=== PATIENT | female | born 1990 | race Caucasian/White ===

== ENCOUNTER 2016-07-27 00:18 | Inpatient (IN) ==
--- NOTE | 2016-07-27 00:26 | Emergency Department Note ---
Disposition Clinical Impression: Methamphetamine use, Cocaine use, Altered mental status, Marijuana use, UTI ( urinary tract infection) Disposition: Still a Patient Condition: Fair Referrals: NO,PCP [Non-Partnered Physician] - Forms: ED Satisfaction Letter General Adult HPI - General Chief complaint: ED General Medical Time Seen by Provider: 07/27/16 00:25 - Related Data Home Medications Medication Instructions Recorded Confirmed ALPRAZolam [Xanax 0.5 MG Tablet] 0.5 mg PO QID 03/08/16 03/08/16 Lurasidone HCl [Latuda] 60 mg PO DAILY 03/08/16 03/08/16 Trazodone HCl 100 mg PO HS 03/08/16 03/08/16 Allergies Allergy/AdvReac Type Severity Reaction Status Date / Time Amoxicillin Allergy Hives Verified 02/12/15 15:58 Past Medical History - Past Medical History Medical history: Reports: migraine Surgical history: Reports: non-contributory, other Psychiatric history: Reports: anxiety, bipolar, depression, panic disorder, schizophrenia CANNONEER history: Reports: no CANNONEER history - Social History Smoking Status: Current every day smoker Smokeless Tobacco Status: No Alcohol use: Reports: occasionally Drug use: Reports: marijuana Course Vital Signs Temperature 97.4 F L 07/27/16 00:24 Pulse Rate 86 07/27/16 00:24 Respiratory Rate 20 07/27/16 00:24 Blood Pressure 118/64 07/27/16 00:24 O2 Sat by Pulse Oximetry 97 07/27/16 00:24 Temperature 97.4 F L 07/27/16 00:24 Pulse Rate 84 07/27/16 03:51 Respiratory Rate 18 07/27/16 03:51 Blood Pressure 114/60 07/27/16 03:51 O2 Sat by Pulse Oximetry 98 07/27/16 03:51 Oxygen Delivery Oxygen Delivery Room Air Medical Decision Making - Lab Data Result diagrams: 07/27/16 01:03 07/27/16 01:03 Lab Results 07/27/16 07/27/16 07/27/16 Range/Units 01:03 01:03 01:15 WBC 10.1 (4.3-11.1) K/mcL RBC 4.75 (3.82-4.97) M/mcL Hgb 14.9 (11.5-15.4) g/dL Hct 43.9 (35.3-44.9) % MCV 92.4 (83.0-100.0) fL MCH 31.4 (28.0-33.3) pg MCHC 33.9 (31.6-35.5) g/dL RDW 13.2 (11.5-14.5) % Plt Count 344 (140-400) K/mcL MPV 9.6 (9.4-12.4) fL Immature Gran % 0.4 (0-4) % Seg Neutrophils % 63.6 % Lymphocytes % 23.0 % Monocytes % 9.4 % Eosinophils % 3.0 % Basophils % 0.6 % Neutrophils # 6.4 (1.6-8.9) K/mcL Lymphocytes # 2.3 (0.6-4.6) K/mcL Monocytes # 1.0 (0.0-1.3) K/mcL Eosinophils # 0.3 (0.0-0.6) K/mcL Basophils # 0.1 (0.0-0.2) K/mcL Immature Plt Fraction 3.6 (1.1-6.1) % Sodium 137 (136-145) mEq/L Potassium 3.5 (3.5-4.5) mEq/L Chloride 104 (98-109) mEq/L Carbon Dioxide 22 (19-29) mEq/L BUN 9 (7-20) mg/dL Creatinine 0.80 (0.57-1.11) mg/dL Est GFR ( Amer) > 60 (> 60) Est GFR (Non-Af Amer) > 60 (> 60) BUN/Creatinine Ratio 11 (6-26) Glucose 90 (70-99) mg/dL Calculated Osmolality 282 (280-300) Calcium 9.6 (8.6-10.8) mg/dL Urine Color Dark Yellow (Yellow) Urine Clarity Turbid A (Clear) Urine pH 6.5 (5.0-8.0) pH Units Ur Specific [place] 1.026 H (1.010-1.025) Urine Protein Trace (Neg-Trace) mg/dL Urine Glucose (UA) Normal (Normal) mg/dL Urine Ketones Trace H (Negative) mg/dL Urine Blood Small H (Negative) Urine Nitrite Positive A (Negative) Urine Bilirubin Negative (Negative) Urine Urobilinogen Normal (Normal) mg/dL Ur Leukocyte Esterase Moderate H (Negative) Urine Microscopic RBC 3-5 H (0-3) per hpf Urine Microscopic WBC 30-50 H (0-3) per hpf Ur Squamous Epith Cells Many H (None-Few) per lpf Urine Bacteria Many H (None-Few) per hpf Hyaline Casts Few (None-Few) per lpf Urine Test (Negative) Salicylates < 5.0 L (15-30) mg/dL Urine Opiates Screen (Cyjyzm=931) ng/mL Acetaminophen < 1.0 L (10-30) mcg/mL Ur Barbiturates Screen (Jirrmm=353) ng/mL Ur Phencyclidine Scrn (Cutoff=25) ng/mL Ur Amphetamines Screen (Nlgppt=0488) ng/mL U Benzodiazepines Scrn (Mtssbn=780) ng/mL Urine Cocaine Screen (Cutoff= 300) ng/mL U Marijuana (THC) Screen (Cutoff = 50) ng/mL Ethyl Alcohol < 10 (0-10) mg/dL 07/27/16 07/27/16 Range/Units 01:18 01:18 WBC (4.3-11.1) K/mcL RBC (3.82-4.97) M/mcL Hgb (11.5-15.4) g/dL Hct (35.3-44.9) % MCV (83.0-100.0) fL MCH (28.0-33.3) pg MCHC (31.6-35.5) g/dL RDW (11.5-14.5) % Plt Count (140-400) K/mcL MPV (9.4-12.4) fL Immature Gran % (0-4) % Seg Neutrophils % % Lymphocytes % % Monocytes % % Eosinophils % % Basophils % % Neutrophils # (1.6-8.9) K/mcL Lymphocytes # (0.6-4.6) K/mcL Monocytes # (0.0-1.3) K/mcL Eosinophils # (0.0-0.6) K/mcL Basophils # (0.0-0.2) K/mcL Immature Plt Fraction (1.1-6.1) % Sodium (136-145) mEq/L Potassium (3.5-4.5) mEq/L Chloride (98-109) mEq/L Carbon Dioxide (19-29) mEq/L BUN (7-20) mg/dL Creatinine (0.57-1.11) mg/dL Est GFR ( Amer) (> 60) Est GFR (Non-Af Amer) (> 60) BUN/Creatinine Ratio (6-26) Glucose (70-99) mg/dL Calculated Osmolality (280-300) Calcium (8.6-10.8) mg/dL Urine Color (Yellow) Urine Clarity (Clear) Urine pH (5.0-8.0) pH Units Ur Specific [place] (1.010-1.025) Urine Protein (Neg-Trace) mg/dL Urine Glucose (UA) (Normal) mg/dL Urine Ketones (Negative) mg/dL Urine Blood (Negative) Urine Nitrite (Negative) Urine Bilirubin (Negative) Urine Urobilinogen (Normal) mg/dL Ur Leukocyte Esterase (Negative) Urine Microscopic RBC (0-3) per hpf Urine Microscopic WBC (0-3) per hpf Ur Squamous Epith Cells (None-Few) per lpf Urine Bacteria (None-Few) per hpf Hyaline Casts (None-Few) per lpf Urine Test Negative (Negative) Salicylates (15-30) mg/dL Urine Opiates Screen Negative (Eyhkgd=633) ng/mL Acetaminophen (10-30) mcg/mL Ur Barbiturates Screen Negative (Fwmjyr=514) ng/mL Ur Phencyclidine Scrn Negative (Cutoff=25) ng/mL Ur Amphetamines Screen Positive H (Nmktkz=7183) ng/mL U Benzodiazepines Scrn Positive H (Gjpazw=983) ng/mL Urine Cocaine Screen Positive H (Cutoff= 300) ng/mL U Marijuana (THC) Screen Positive H (Cutoff = 50) ng/mL Ethyl Alcohol (0-10) mg/dL Attestation Statement - Attestation Attestation: I examined this patient and my medical decision-making was reviewed with the RETAIL ASSET PROTECTION SPECIALIST/PA/Advanced Practice Nurse/Resident Physician. I agree with the documented findings, disposition and treatment plan as described except to the extent set forth below. Hpsd-ib-erny time provided The patient is teary and histrionic after admitting to methamphetamine use. She exhibits delusional and paranoid ideation. Patient seen and evaluated in conjunction with the resident physician Dr. Mack
[2016-07-27] MEDS ORDERED: *HR* LORazepam 1 MG TABLET PO ONE (00:31)
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
[2016-07-27 01:10] LABS: Basophils # 0.1 K/mcL (0.0-0.2); Basophils % 0.6 %; Eosinophils # 0.3 K/mcL (0.0-0.6); Hematocrit 43.9 % (35.3-44.9); Hemoglobin 14.9 g/dL (11.5-15.4); Immature Granulocytes % 0.4 % (0-4); Immature Platelets 3.6 % (1.1-6.1); Lymphocytes # 2.3 K/mcL (0.6-4.6); Mean Corpuscular HGB Conc 33.9 g/dL (31.6-35.5); Mean Corpuscular Hemoglobin 31.4 pg (28.0-33.3); Mean Corpuscular Volume 92.4 fL (83.0-100.0); Mean Platelet Volume 9.6 fL (9.4-12.4); Monocytes % 9.4 %; Neutrophils # 6.4 K/mcL (1.6-8.9); Platelet Count 344 K/mcL (140-400); Red Blood Count 4.75 M/mcL (3.82-4.97); Red Cell Distribution Width 13.2 % (11.5-14.5); Segmented Neutrophils % 63.6 %
[2016-07-27 01:23] LABS: BUN/Creatinine Ratio 11 (6-26); Blood Urea Nitrogen 9 mg/dL (7-20); Calcium 9.6 mg/dL (8.6-10.8); Carbon Dioxide 22 mEq/L (19-29); Chloride 104 mEq/L (98-109); Glucose 90 mg/dL (70-99); Osmolality,Calculated 282 (280-300); Potassium 3.5 mEq/L (3.5-4.5); Sodium 137 mEq/L (136-145); eGFR For African Americans > 60 (> 60); eGFR For Non-African Americans > 60 (> 60)
[2016-07-27 01:24] LABS: Bilirubin,Urine Negative (Negative); Blood,Urine Small (Negative); Clarity,Urine Turbid (Clear); Color,Urine Dark Yellow (Yellow); Glucose,Urine (UA) Normal (Normal); Ketones,Urine Trace mg/dL (Negative); Leukocyte Esterase,Urine Moderate (Negative); Nitrite,Urine Positive (Negative); PH,Urine 6.5 pH Units (5.0-8.0); Protein,Urine Trace mg/dL (Neg-Trace); Specific Gravity,Urine 1.026 (1.010-1.025); Urobilinogen,Urine Normal (Normal)
[2016-07-27 01:26] LABS: Bacteria,Urine Many per hpf (None-Few); Hyaline Casts,Urine Few per lpf (None-Few); Squamous Epithelial Cell,Urine Many per lpf (None-Few); WBC,Urine 30-50 per hpf (0-3)
[2016-07-27 01:29] LABS: Acetaminophen < 1.0 mcg/mL (10-30); Ethanol < 10 mg/dL (0-10); Salicylate < 5.0 mg/dL (15-30)
[2016-07-27 01:30] LABS: Amphetamine Screen,Urine Positive ng/mL (Cutoff=1000); Barbiturate Screen,Urine Negative ng/mL (Cutoff=200); Benzodiazepines Screen,Urine Positive ng/mL (Cutoff=200); Cannabinoid Screen,Urine Positive ng/mL (Cutoff = 50); Cocaine Screen,Urine Positive ng/mL (Cutoff= 300); Opiate Screen,Urine Negative ng/mL (Cutoff=300); Phencyclidine Screen,Urine Negative ng/mL (Cutoff=25)
[2016-07-27] MEDS ORDERED: cefTRIAXone 250 MG VIAL IM ONE (02:32)
[2016-07-27] MEDS ORDERED: Azithromycin 250 MG TABLET PO ONE (02:32)
[2016-07-27] MEDS ORDERED: *HR* LORazepam 2 MG/ML VIAL IM ONE ×2 (02:49→21:08)
[2016-07-27] MEDS ORDERED: OLANZapine 10 MG VIAL IM ONE (04:28)
[2016-07-27] MEDS ORDERED: Water for inj. (sterile) 10 ML IV ONE (04:36)
--- NOTE | 2016-07-27 12:50 | Emergency Department Note ---
Disposition Clinical Impression: Methamphetamine use, Cocaine use, Marijuana use Altered mental status Qualifiers: Altered mental status type: unspecified Qualified Code(s): R41.82 - Altered mental status, unspecified UTI (urinary tract infection) Qualifiers: Urinary tract infection type: acute cystitis Hematuria presence: without hematuria Qualified Code(s): N30.00 - Acute cystitis without hematuria Disposition: Home, Self-Care Condition: Fair Instructions: Urinary Tract Infection in Children (ED), Methamphetamine Abuse ( ED) Prescriptions: Nitrofurantoin (BID) [Macrobid] 100 mg PO BID #20 capsule Referrals: NO,PCP [Non-Partnered Physician] - [facility] [Outside] [facility] [Outside] Forms: ED Satisfaction Letter Time of Disposition: 12:51 General Adult HPI - General Chief complaint: ED General Medical Time Seen by Provider: 07/27/16 00:25 Source: patient Mode of arrival: ambulatory Limitations: altered mental status (Drug overdose) - History of Present Illness Pain Scale: 3 Quality: aching Improves with: nothing Worsens with: nothing Associated symptoms: Reports: confusion, diaphoresis, headaches. Denies: chest pain, cough, fever/chills, loss of appetite, malaise, nausea/vomiting Treatments Prior to Arrival: none - Related Data Home Medications Medication Instructions Recorded Confirmed ALPRAZolam [Xanax 0.5 MG Tablet] 0.5 mg PO QID 03/08/16 03/08/16 Lurasidone HCl [Latuda] 60 mg PO DAILY 03/08/16 03/08/16 Trazodone HCl 100 mg PO HS 03/08/16 03/08/16 Previous Rx's Medication Instructions Recorded Nitrofurantoin (BID) [Macrobid] 100 mg PO BID #20 capsule 07/27/16 Allergies Allergy/AdvReac Type Severity Reaction Status Date / Time Amoxicillin Allergy Hives Verified 02/12/15 15:58 Constitutional: Denies: fever, chills Cardiovascular: Reports: palpitations. Denies: chest pain Respiratory: Denies: cough, dyspnea Gastrointestinal: Denies: abdominal pain, nausea Psychiatric: Reports: as per HPI, anxiety, depression, auditory hallucinations, visual hallucinations. Denies: suicidal thoughts, homicidal thoughts Past Medical History - Past Medical History Medical history: Reports: migraine Surgical history: Reports: non-contributory, other Psychiatric history: Reports: anxiety, bipolar, depression, panic disorder, schizophrenia AMBULANCE PARAMEDIC history: Reports: no AMBULANCE PARAMEDIC history - Social History Smoking Status: Current every day smoker Smokeless Tobacco Status: No Alcohol use: Reports: occasionally Drug use: Reports: marijuana Physical Exam - General Limitations: altered mental status (Drug overdose) General appearance: appears intoxicated, anxious Course - Reevaluation(s) Reevaluation #1: Patient was evaluated by psychiatry Margarita 1A who came up and reevaluated patient felt she was not suicidal and she was cleared for discharge. I spoke to the patient she is awake and alert thinks she got some bad methamphetamine. She denies suicidal or homicidal ideation she denies any psychotic features now no visual auditory hallucinations. Patient will be discharged to follow-up for treatment of substance abuse. Structured given per 1A. Time: 12:47 Vital Signs Temperature 97.4 F L 07/27/16 00:24 Pulse Rate 86 07/27/16 00:24 Respiratory Rate 20 07/27/16 00:24 Blood Pressure 118/64 07/27/16 00:24 O2 Sat by Pulse Oximetry 97 07/27/16 00:24 Temperature 97.4 F L 07/27/16 00:24 Pulse Rate 66 07/27/16 08:33 Respiratory Rate 16 07/27/16 08:33 Blood Pressure 109/70 07/27/16 08:33 O2 Sat by Pulse Oximetry 99 07/27/16 08:33 Oxygen Delivery Oxygen Delivery Room Air Medical Decision Making - Lab Data Lab results reviewed: Yes I reviewed the patient's lab results. Result diagrams: 07/27/16 01:03 07/27/16 01:03 Lab Results 07/27/16 07/27/16 07/27/16 Range/Units 01:03 01:03 01:15 WBC 10.1 (4.3-11.1) K/mcL RBC 4.75 (3.82-4.97) M/mcL Hgb 14.9 (11.5-15.4) g/dL Hct 43.9 (35.3-44.9) % MCV 92.4 (83.0-100.0) fL MCH 31.4 (28.0-33.3) pg MCHC 33.9 (31.6-35.5) g/dL RDW 13.2 (11.5-14.5) % Plt Count 344 (140-400) K/mcL MPV 9.6 (9.4-12.4) fL Immature Gran % 0.4 (0-4) % Seg Neutrophils % 63.6 % Lymphocytes % 23.0 % Monocytes % 9.4 % Eosinophils % 3.0 % Basophils % 0.6 % Neutrophils # 6.4 (1.6-8.9) K/mcL Lymphocytes # 2.3 (0.6-4.6) K/mcL Monocytes # 1.0 (0.0-1.3) K/mcL Eosinophils # 0.3 (0.0-0.6) K/mcL Basophils # 0.1 (0.0-0.2) K/mcL Immature Plt Fraction 3.6 (1.1-6.1) % Sodium 137 (136-145) mEq/L Potassium 3.5 (3.5-4.5) mEq/L Chloride 104 (98-109) mEq/L Carbon Dioxide 22 (19-29) mEq/L BUN 9 (7-20) mg/dL Creatinine 0.80 (0.57-1.11) mg/dL Est GFR ( Amer) > 60 (> 60) Est GFR (Non-Af Amer) > 60 (> 60) BUN/Creatinine Ratio 11 (6-26) Glucose 90 (70-99) mg/dL Calculated Osmolality 282 (280-300) Calcium 9.6 (8.6-10.8) mg/dL Urine Color Dark Yellow (Yellow) Urine Clarity Turbid A (Clear) Urine pH 6.5 (5.0-8.0) pH Units Ur Specific [place] 1.026 H (1.010-1.025) Urine Protein Trace (Neg-Trace) mg/dL Urine Glucose (UA) Normal (Normal) mg/dL Urine Ketones Trace H (Negative) mg/dL Urine Blood Small H (Negative) Urine Nitrite Positive A (Negative) Urine Bilirubin Negative (Negative) Urine Urobilinogen Normal (Normal) mg/dL Ur Leukocyte Esterase Moderate H (Negative) Urine Microscopic RBC 3-5 H (0-3) per hpf Urine Microscopic WBC 30-50 H (0-3) per hpf Ur Squamous Epith Cells Many H (None-Few) per lpf Urine Bacteria Many H (None-Few) per hpf Hyaline Casts Few (None-Few) per lpf Urine Test (Negative) Salicylates < 5.0 L (15-30) mg/dL Urine Opiates Screen (Irgjnu=619) ng/mL Acetaminophen < 1.0 L (10-30) mcg/mL Ur Barbiturates Screen (Bykyek=940) ng/mL Ur Phencyclidine Scrn (Cutoff=25) ng/mL Ur Amphetamines Screen (Oayrwl=9521) ng/mL U Benzodiazepines Scrn (Ycqwun=900) ng/mL Urine Cocaine Screen (Cutoff= 300) ng/mL U Marijuana (THC) Screen (Cutoff = 50) ng/mL Ethyl Alcohol < 10 (0-10) mg/dL 07/27/16 07/27/16 Range/Units 01:18 01:18 WBC (4.3-11.1) K/mcL RBC (3.82-4.97) M/mcL Hgb (11.5-15.4) g/dL Hct (35.3-44.9) % MCV (83.0-100.0) fL MCH (28.0-33.3) pg MCHC (31.6-35.5) g/dL RDW (11.5-14.5) % Plt Count (140-400) K/mcL MPV (9.4-12.4) fL Immature Gran % (0-4) % Seg Neutrophils % % Lymphocytes % % Monocytes % % Eosinophils % % Basophils % % Neutrophils # (1.6-8.9) K/mcL Lymphocytes # (0.6-4.6) K/mcL Monocytes # (0.0-1.3) K/mcL Eosinophils # (0.0-0.6) K/mcL Basophils # (0.0-0.2) K/mcL Immature Plt Fraction (1.1-6.1) % Sodium (136-145) mEq/L Potassium (3.5-4.5) mEq/L Chloride (98-109) mEq/L Carbon Dioxide (19-29) mEq/L BUN (7-20) mg/dL Creatinine (0.57-1.11) mg/dL Est GFR ( Amer) (> 60) Est GFR (Non-Af Amer) (> 60) BUN/Creatinine Ratio (6-26) Glucose (70-99) mg/dL Calculated Osmolality (280-300) Calcium (8.6-10.8) mg/dL Urine Color (Yellow) Urine Clarity (Clear) Urine pH (5.0-8.0) pH Units Ur Specific [place] (1.010-1.025) Urine Protein (Neg-Trace) mg/dL Urine Glucose (UA) (Normal) mg/dL Urine Ketones (Negative) mg/dL Urine Blood (Negative) Urine Nitrite (Negative) Urine Bilirubin (Negative) Urine Urobilinogen (Normal) mg/dL Ur Leukocyte Esterase (Negative) Urine Microscopic RBC (0-3) per hpf Urine Microscopic WBC (0-3) per hpf Ur Squamous Epith Cells (None-Few) per lpf Urine Bacteria (None-Few) per hpf Hyaline Casts (None-Few) per lpf Urine Test Negative (Negative) Salicylates (15-30) mg/dL Urine Opiates Screen Negative (Lbdlkz=802) ng/mL Acetaminophen (10-30) mcg/mL Ur Barbiturates Screen Negative (Tjgxgv=092) ng/mL Ur Phencyclidine Scrn Negative (Cutoff=25) ng/mL Ur Amphetamines Screen Positive H (Acxhkr=2408) ng/mL U Benzodiazepines Scrn Positive H (Tfetaf=394) ng/mL Urine Cocaine Screen Positive H (Cutoff= 300) ng/mL U Marijuana (THC) Screen Positive H (Cutoff = 50) ng/mL Ethyl Alcohol (0-10) mg/dL
[2016-07-27] MEDS ORDERED: Nicotine 21 MG PATCH.TD24 TD STA (17:30)
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
[2016-07-28] MEDS ORDERED: *HR* LORazepam 1 MG TABLET PO PRN (17:13)
[2016-07-28] MEDS ORDERED: hydrOXYzine pamoate 25 MG CAPSULE PO PRN (17:13)
[2016-07-28] MEDS ORDERED: traZODone 50 MG TABLET PO PRN (17:13)
[2016-07-28] MEDS ORDERED: *HR* LORazepam 2 MG/ML VIAL IM PRN (17:13)
[2016-07-28] MEDS ORDERED: MOM Conc 10 ML UD.LIQ PO PRN (17:13)
[2016-07-28] MEDS ORDERED: Haloperidol Lactate 5 MG/ML VIAL IM PRN (17:13)
[2016-07-28] MEDS ORDERED: Mag Hydrox/Al Hydrox/Simeth 30 ML UDC PO PRN (17:13)
[2016-07-28] MEDS ORDERED: Nicotine 2 MG GUM BC PRN (17:36)
[2016-07-28] MEDS: Ibuprofen 400 MG TABLET PO PRN (17:56)
[2016-07-28] MEDS: risperiDONE 1 MG TABLET PO SCH (20:54)
[2016-07-28] MEDS ORDERED: risperiDONE 1 MG TABLET PO SCH (21:00)
[2016-07-29] MEDS: Nicotine 21 MG PATCH.TD24 TD SCH (09:38)
[2016-07-29] MEDS: Nitrofurantoin (BID) 100 MG CAPSULE PO SCH ×2 (09:39→17:23)
--- NOTE | 2016-07-29 11:15 | Psychiatry History & Physical ---
Date of Encounter: 07/29/16 Time of Encounter: 11:07 History of Present Illness Patient Stated Chief Complaint: suicidal ideation Medicare Admission Attestation: For traditional Medicare patients the provided hospital inpatient services are reasonable and necessary and in the case of services not specified as inpatient -only under 42 CFR 419.22 (n), that they are appropriately provided as inpatient services in accordance 42 CFR 412.3. For Critical Access Hospital the patient may reasonably be expected to be discharged or transferred to a hospital within 96 hours after admission to the Critical Access Hospital. Admitted From: Home Plans for Post Hospital Care: Home History of Present Illness: Ms. Grissom is a 26 year old female who was admitted secondary to SI. She and her boyfriend presented to the ER together. Both were paranoid that others were after them and appeared to be experiencing psychotic symptoms. Heavy drug use. Given time to sober up in the ER but client eventually endorsed SI and was admitted to . Boyfriend admitted to a nearby facility due to lack of bed space here. Client endorsed a history of a near lethal suicide attempt a few years ago. Overdosed on Flexeril and was "in a coma" for several days. Doesn' t want to go through that experience again but also feels like giving up. Homeless for the last two years. Family has disowned her. Paternal grandmother raising her daughter. Daughter's birthday is in two days and she has been unable to contact her. Very tearful. Has a psychiatrist who prescribes her Risperdal and Xanax. Feels like meds not working. Took Celexa in the past with positive results and willing to try this again. Discussed Klonopin in lieu of Xanax and she is agreeable. Also discussed Vistaril for as needed anxiety. Will continue Risperdal until paranoia clears. Client admitted to smoking crystal meth and this may be the source of any residual psychosis. Past Med Surg Social Fam HX - Past Medical History Medical history: migraine - Past Psychiatric History Psychiatric history: Reports: bipolar, depression, prior suicide attempt Family psychiatric history: Yes Family Psychiatric History Details: father-bipolar, mother-anxiety Family History of Suicide: Unknown - Past Surgical History Surgical History: non-contributory, other - Social History Smoking Status: Current every day smoker Smokeless Tobacco Status: No Alcohol use: occasionally Drug use: marijuana, methamphetamine - Family History Father Adopted: No Family Member Ethnicity: Non- Living Status: Still Living Hx Family Cardiac Disorders: No Hx Family Respiratory Disorders: No Hx Family Cancer: No Hx Family GI Disorders: No Hx Family Endocrine Disorder: No Hx Family Neuromuscular Disorders: No Hx Family Neurologic Disorders: Yes Hx Family HEENT Disorders: No Hx Family Autoimmune Disorders: No Medications & Allergies ALPRAZolam [Xanax 0.5 MG Tablet] 0.5 mg PO Q6H 03/08/16 [History] Nitrofurantoin (BID) [Macrobid] 100 mg PO BID #20 capsule 07/27/16 [Rx] ALPRAZolam [Xanax 0.5 MG Tablet] 0.5 mg PO DAILY PRN 07/28/16 [History] risperiDONE [Risperidone] 1 mg PO HS 07/28/16 [History] Allergies Amoxicillin Allergy (Verified 02/12/15 15:58) Hives Review of Systems Constitutional: Denies: fever, chills, weakness, weight change Eyes: Denies: eye pain, vision change Ears, Nose, Throat: Denies: ear pain, throat pain, dental pain, hearing loss, congestion Cardiovascular: Denies: chest pain, palpitations, dyspnea on exertion Respiratory: Denies: cough, dyspnea, wheezes Gastrointestinal: Denies: abdominal pain, nausea, vomiting, diarrhea, constipation Genitourinary male: Denies: urgency, dysuria, frequency, genital lesions Genitourinary female: Denies: urgency, dysuria, frequency, abnormal menses, dyspareunia Musculoskeletal: Reports: other Integumentary: Denies: rash, lesions, pruritus Neurological: Denies: headache, weakness, numbness, memory loss Endocrine: Denies: fatigue, heat or cold intolerance Hematologic/Lymphatic: Denies: easy bruising, lymphadenopathy Allergic/Immunologic: Denies: urticaria, itchy eyes Mental Status Exam Patient orientation: Yes Person, Yes Time, Yes Place Level of alertness: Alert Patient appearance: Appropriate, Well Groomed Behavior: calm, cooperative Psychomotor activity: Normal Eye contact: Maintains Eye Contact Mood description: Depressed Affect description: tearful Speech pattern: Normal rate, Normal rhythm, Normal tone Speech volume: Normal Thought process: Linear Thought content: Yes Suicidal ideation, Yes Paranoid delusion Perceptual disturbances: No Auditory hallucinations, No Visual hallucinations Attention span: Capable of Focused Attention Memory description: Grossly Intact Patient reliability: Reliable Historian Intelligence estimate: Average Judgment: Limited Insight: Partial Exam - HEENT Head exam IM: Present: normal inspection Eye exam IM: Present: EOMI ENT exam IM: Present: mucous membranes moist - Neurological Neurological exam IM: Present: alert, oriented X3 - Respiratory Respiratory exam IM: Present: CTAB - GI/Abdominal GI/Abdominal exam IM: Present: normal bowel sounds - Extremities Extremities exam IM: Present: full ROM - Skin Skin exam IM: Present: normal color Results - Vital Signs Vital signs: Temp Pulse Resp BP Pulse Ox 98.4 F 80 16 104/69 97 07/28/16 21:00 07/28/16 21:00 07/28/16 21:00 07/28/16 21:00 07/28/16 14:25 - Labs Labs: Laboratory Last Values WBC 10.1 K/mcL (4.3-11.1) 07/27/16 01:03 RBC 4.75 M/mcL (3.82-4.97) 07/27/16 01:03 Hgb 14.9 g/dL (11.5-15.4) 07/27/16 01:03 Hct 43.9 % (35.3-44.9) 07/27/16 01:03 MCV 92.4 fL (83.0-100.0) 07/27/16 01:03 MCH 31.4 pg (28.0-33.3) 07/27/16 01:03 MCHC 33.9 g/dL (31.6-35.5) 07/27/16 01:03 RDW 13.2 % (11.5-14.5) 07/27/16 01:03 Plt Count 344 K/mcL (140-400) 07/27/16 01:03 MPV 9.6 fL (9.4-12.4) 07/27/16 01:03 Immature Gran % 0.4 % (0-4) 07/27/16 01:03 Seg Neutrophils % 63.6 % 07/27/16 01:03 Lymphocytes % 23.0 % 07/27/16 01:03 Monocytes % 9.4 % 07/27/16 01:03 Eosinophils % 3.0 % 07/27/16 01:03 Basophils % 0.6 % 07/27/16 01:03 Neutrophils # 6.4 K/mcL (1.6-8.9) 07/27/16 01:03 Lymphocytes # 2.3 K/mcL (0.6-4.6) 07/27/16 01:03 Monocytes # 1.0 K/mcL (0.0-1.3) 07/27/16 01:03 Eosinophils # 0.3 K/mcL (0.0-0.6) 07/27/16 01:03 Basophils # 0.1 K/mcL (0.0-0.2) 07/27/16 01:03 Immature Plt Fraction 3.6 % (1.1-6.1) 07/27/16 01:03 Sodium 137 mEq/L (136-145) 07/27/16 01:03 Potassium 3.5 mEq/L (3.5-4.5) 07/27/16 01:03 Chloride 104 mEq/L (98-109) 07/27/16 01:03 Carbon Dioxide 22 mEq/L (19-29) 07/27/16 01:03 BUN 9 mg/dL (7-20) 07/27/16 01:03 Creatinine 0.80 mg/dL (0.57-1.11) 07/27/16 01:03 Est GFR ( Amer) > 60 (> 60) 07/27/16 01:03 Est GFR (Non-Af Amer) > 60 (> 60) 07/27/16 01:03 BUN/Creatinine Ratio 11 (6-26) 07/27/16 01:03 Glucose 90 mg/dL (70-99) 07/27/16 01:03 Calculated Osmolality 282 (280-300) 07/27/16 01:03 Calcium 9.6 mg/dL (8.6-10.8) 07/27/16 01:03 Urine Color Dark Yellow (Yellow) 07/27/16 01:15 Urine Clarity Turbid (Clear) A 07/27/16 01:15 Urine pH 6.5 pH Units (5.0-8.0) 07/27/16 01:15 Ur Specific [place] 1.026 (1.010-1.025) H 07/27/16 01:15 Urine Protein Trace mg/dL (Neg-Trace) 07/27/16 01:15 Urine Glucose (UA) Normal mg/dL (Normal) 07/27/16 01:15 Urine Ketones Trace mg/dL (Negative) H 07/27/16 01:15 Urine Blood Small (Negative) H 07/27/16 01:15 Urine Nitrite Positive (Negative) A 07/27/16 01:15 Urine Bilirubin Negative (Negative) 07/27/16 01:15 Urine Urobilinogen Normal mg/dL (Normal) 07/27/16 01:15 Ur Leukocyte Esterase Moderate (Negative) H 07/27/16 01:15 Urine Microscopic RBC 3-5 per hpf (0-3) H 07/27/16 01:15 Urine Microscopic WBC 30-50 per hpf (0-3) H 07/27/16 01:15 Ur Squamous Epith Cells Many per lpf (None-Few) H 07/27/16 01:15 Urine Bacteria Many per hpf (None-Few) H 07/27/16 01:15 Hyaline Casts Few per lpf (None-Few) 07/27/16 01:15 Urine Test Negative (Negative) 07/27/16 01:18 Salicylates < 5.0 mg/dL (15-30) L 07/27/16 01:03 Urine Opiates Screen Negative ng/mL (Mnssqb=878) 07/27/16 01:18 Acetaminophen < 1.0 mcg/mL (10-30) L 07/27/16 01:03 Ur Barbiturates Screen Negative ng/mL (Usrggb=637) 07/27/16 01:18 Ur Phencyclidine Scrn Negative ng/mL (Cutoff=25) 07/27/16 01:18 Ur Amphetamines Screen Positive ng/mL (Viwsib=9840) H 07/27/16 01:18 U Benzodiazepines Scrn Positive ng/mL (Spqvqx=183) H 07/27/16 01:18 Urine Cocaine Screen Positive ng/mL (Cutoff= 300) H 07/27/16 01:18 U Marijuana (THC) Screen Positive ng/mL (Cutoff = 50) H 07/27/16 01:18 Ethyl Alcohol < 10 mg/dL (0-10) 07/27/16 01:03 Assessment and Plan (1) Altered mental status Current visit: Yes Status: Acute Plan: Admit inpatient for safety and stabilization, Close observation, Suicide Precautions per unit protocol, Encourage participation in unit milieu, Group Therapy, Monitor sleep, Monitor appetite Risks, benefits, side effects, alternatives discussed w/pt: Yes Patient agreeable to treatment: Yes Plans for Post Hospital Care: Home Estimated Length of Stay (Days): 4 Qualifiers: Altered mental status type: unspecified Qualified Code(s): R41.82 - Altered mental status, unspecified
[2016-07-29] MEDS: clonazePAM 0.5 MG TABLET PO SCH ×2 (12:04→20:35)
[2016-07-29] MEDS: risperiDONE 1 MG TABLET PO SCH (20:35)
[2016-07-29 23:29] VITALS: BP 138/81
[2016-07-30] MEDS: clonazePAM 0.5 MG TABLET PO SCH (08:52)
[2016-07-30] MEDS: Nitrofurantoin (BID) 100 MG CAPSULE PO SCH (08:53)
[2016-07-30] MEDS: Nicotine 21 MG PATCH.TD24 TD SCH (08:54)
--- NOTE | 2016-07-30 10:16 | Discharge Summary ---
Date of Encounter: 07/30/16 Time of Encounter: 09:50 Diagnosis - Discharge Diagnosis (1) Substance induced mood disorder Status: Acute (2) Substance induced mood disorder Status: Acute Medications - Discharge Medications Prescriptions: Citalopram [CeleXA] 20 mg PO DAILY #30 tablet clonazePAM [Klonopin] 0.5 mg PO BID #60 tablet Nitrofurantoin (BID) [Macrobid] 100 mg PO BIDWM #13 capsule Nitrofurantoin (BID) [Macrobid] 100 mg PO BID #20 capsule 07/27/16 [Rx] Citalopram [CeleXA] 20 mg PO DAILY #30 tablet 07/30/16 [Rx] Nitrofurantoin (BID) [Macrobid] 100 mg PO BIDWM #13 capsule 07/30/16 [Rx] clonazePAM [Klonopin] 0.5 mg PO BID #60 tablet 07/30/16 [Rx] risperiDONE [RisperDAL] 1 mg PO HS #30 tablet 07/30/16 [Rx] Allergies Amoxicillin Allergy (Verified 02/12/15 15:58) Hives Provider Date of admission: 07/28/16 17:07 Primary care physician: PCP NO Consults: 07/28/16 19:08 Consult to Pastoral Services [CONS] Routine Comment: Discharging clinician: Opal Brown Assessment and Plan - Patient/Caregiver Discharge Instructions Activity: resume usual activities as tolerated Diet: regular diet - Follow up Plan Follow up with: [facility] [Outside] [facility] [Outside] - 08/24/16 11:00 am (The above appointment is with Dr. Zaldivar, for outpatient psychiatric assessment and medication management services. ) Overall status at discharge: Stable Disposition: Home, Self-Care Hospital Course Hospital course: Ms. Grissom is a 26 year old female Was referred for hospitalization for depression and suicidal ideation and paranoia. Patient admitted to using crystal meth and became extremely depressed and hopeless and paranoid and started perceiving and believing things which may not be real. Patient was hospitalized and after reviewing the symptom diagnosis and treatment plan and explaining risks benefit side effects alternative treatment consequences of no treatment and getting an informed consent from the patient her medications were adjusted as follows.Xanax was discontinued and she was switched to Klonopin she was started on Risperdal 1 mg at bedtime for her paranoia and residual psychosis. She was also started on Celexa 20 mg daily for her depression which has benefited her in the past. Patient responded well to the therapeutic milieu she became clear and her psychosis subsided. Her paranoia subsided. She became more bright cheerful and hopeful and future oriented. She reported that her sister reached out to her and willing to offer her a place to live. Patient reported that her daughter's birthday is today and she resides in [place] with her grandmother. Pts sister is planning on picking her up from the hospital and driving her to [place] to meet her daughter. Patient was able to verbalize a safety plan. She was tolerating medications fairly well and did not report any side effects. Overall patient's condition on discharge was stable Does patient wish to continue nicotine replacement upon disc: No - Time Spent with Patient Total time spent providing and/or coordinating discharge services: Less than 30 minutes Quality - Multiple Antipsychotics Patient discharged on 2 or more antipsychotic medications: No Procedures - Procedures Procedures: Medication Management, Crisis Stabilization, Supportive Therapy, Group Therapy, Psychoeducational Therapy Mental Status Exam - Mental Status Exam Patient orientation: Yes Person, Yes Time, Yes Place Level of alertness: Alert Patient appearance: Appropriate, Well Groomed Behavior: calm, cooperative Psychomotor activity: Normal Eye contact: Maintains Eye Contact Mood description: Euthymic/stable Affect description: congruent with mood, full range Speech pattern: Normal rate, Normal rhythm, Normal tone Speech Volume: Normal Thought process: Linear, Goal Oriented Thought Content: No Suicidal ideation, No Homicidal ideation, No Overt delusions Perceptual Disturbances: No Auditory hallucinations, No Visual hallucinations Judgment: Limited Insight: Partial
[2016-07-30] MEDS: Ibuprofen 400 MG TABLET PO PRN (11:05)
== END 2016-07-30 13:24 | disposition home or self-care (01) | DRG 774 ==
LOC: EMEROO 00:18 → 1ANU 07-28 17:07 → SUATTDRO 07-28 17:07 → 1ANU 07-28 17:10
PROVIDERS: ADMIT Psychiatry & Neurology Psychiatry; ATTEND Psychiatry & Neurology Psychiatry

== ENCOUNTER 2019-04-03 02:48 | Inpatient (IN) ==
[2019-04-03] MEDS ORDERED: FLU Vac QV 19-20 (6Month+)/PF 0.5 ML SYRINGE IM ONE (02:58)
[2019-04-03] MEDS ORDERED: Azithromycin 500 MG in 0.9 % Sodium Chloride 250 ML IVPB ONE (03:19)
[2019-04-03] MEDS ORDERED: Famotidine 20 MG/2 ML VIAL IVP PRN (03:19)
[2019-04-03] MEDS ORDERED: Lidocaine 1% 20 ML MDV INFILT PRN (03:19)
[2019-04-03] MEDS ORDERED: Metoclopramide 10 MG/2 ML VIAL IVP PRN (03:19)
[2019-04-03] MEDS ORDERED: Naloxone 0.4 MG/ML INJ IVP PRN (03:19)
[2019-04-03] MEDS ORDERED: Ondansetron 4 MG/2 ML VIAL IVP PRN (03:19)
[2019-04-03] MEDS ORDERED: *HR* FentaNYL (PF) 100 MCG/2 ML VIAL IVP PRN (03:19)
[2019-04-03] MEDS ORDERED: Oxytocin 20 units/ LR 1000 mL 20 UNIT/1,000 ML BAG IVC SCH ×2 (03:30→11:15)
[2019-04-03] MEDS ORDERED: Ringers Solution, Lactated 1,000 ML IVC SCH (03:30)
[2019-04-03 03:34] LABS: Eosinophils % 0.6 %; Hematocrit 33.8 % (35.3-44.9); Hemoglobin 11.2 g/dL (11.5-15.4); Lymphocytes % 10.9 %; Mean Corpuscular HGB Conc 33.1 g/dL (31.6-35.5); Mean Corpuscular Hemoglobin 30.9 pg (28.0-33.3); Mean Corpuscular Volume 93.1 fL (83.0-100.0); Mean Platelet Volume 11.1 fL (9.4-12.4); Monocytes % 8.7 %; Platelet Count 206 K/mcL (140-400); Red Blood Count 3.63 M/mcL (3.82-4.97); Red Cell Distribution Width 14.7 % (11.5-14.5); Segmented Neutrophils % 77.5 %; White Blood Count 14.4 K/mcL (4.3-11.1)
[2019-04-03 03:35] LABS: Basophils % 0.3 %; Eosinophils # 0.1 K/mcL (0.0-0.6); Lymphocytes # 1.6 K/mcL (0.6-4.6); Monocytes # 1.3 K/mcL (0.0-1.3); Neutrophils # 11.2 K/mcL (1.6-8.9)
[2019-04-03] MEDS ORDERED: EPHEDrine 50 MG/ML VIAL IVP PRN (04:18)
[2019-04-03] MEDS ORDERED: Epidural Premix (fent/bupiv) 110 ML EP SCH (04:30)
[2019-04-03 05:56] LABS: Amphetamine Screen,Urine Negative ng/mL (Cutoff=1000); Barbiturate Screen,Urine Negative ng/mL (Cutoff=200); Benzodiazepines Screen,Urine Negative ng/mL (Cutoff=200); Cannabinoid Screen,Urine Positive ng/mL (Cutoff = 50); Cocaine Screen,Urine Negative ng/mL (Cutoff= 300); Opiate Screen,Urine Negative ng/mL (Cutoff=300); Phencyclidine Screen,Urine Negative ng/mL (Cutoff=25)
[2019-04-03] MEDS ORDERED: Lanolin 7 G OINT...G. TP PRN (11:12)
[2019-04-03] MEDS ORDERED: Benzocaine/Menthol 56 GM AEROSOL SPRAY TP PRN (11:12)
[2019-04-03] MEDS ORDERED: Oxytocin 20 units/ LR 1000 mL 20 UNIT/1,000 ML BAG IVC ONE (11:12)
[2019-04-03] MEDS ORDERED: Acetaminophen 325 MG TABLET PO PRN (11:12)
[2019-04-03] MEDS: Ibuprofen 600 MG TABLET PO PRN ×2 (11:38→21:11)
[2019-04-04 08:19] VITALS: BP 112/67
[2019-04-04] MEDS ORDERED: Prenatal Vit/FA 1 EACH TABLET PO SCH (09:00)
[2019-04-04] MEDS: Ibuprofen 600 MG TABLET PO PRN (09:42)
== END 2019-04-04 13:20 | disposition home or self-care (01) | DRG 560 ==
LOC: 1NENULAB → OBSVTOIN 02:48 → 1NENULAB 04:18 → 1NENUOBS 10:08
PROVIDERS: ADMIT Registered Nurse; ATTEND Registered Nurse